=== PATIENT | female | born 1965 | race Caucasian/White ===

== ENCOUNTER 2022-06-26 15:40 | Emergency (ER) | payer OTHER, SELFPAY | END 2022-06-26 16:23 | disposition home or self-care (01) | LOC: BURERS 15:40 | DX: S91.301A Unspecified open wound, right foot, initial encounter (principal); F17.200 Nicotine dependence, unspecified, uncomplicated; W57.XXXA Bitten or stung by nonvenomous insect and other nonvenomous arthropods, initial encounter | CPT/HCPCS: 99282 ==